=== PATIENT | male | born 1955 | race Caucasian/White ===

== ENCOUNTER 2021-09-28 11:15 | Inpatient (IN) | payer MEDICARE ==
[2021-09-28 12:49] LABS: Hemoglobin 15.3 g/dL (13.5-17.5); Mean Corpuscular HGB CONC 33.8 g/dL (32.0-36.0); Mean Corpuscular Hemoglobin 31.2 pg (27.0-33.0); Mean Corpuscular Volume 92.3 fl (81.2-95.1); Mean Platelet Volume 10.2 fl (7.4-10.4); Platelet Count 172 10x3/uL (150-450); RBC Distribution Width 13.1 % (11.5-14.5); Red Blood Cell (RBC) Count 4.91 10x6/uL (4.32-5.72); White Blood Cell (WBC) Count 5.7 10x3/uL (3.5-10.5)
[2021-09-28 13:10] LABS: Anion Gap 14 mmol/L (10-20); BUN (Urea Nitrogen) 15 mg/dL (8.4-25.7); Calc. Creatinine Clearance 0 mL/min (70-130); Calcium 9.1 mg/dL (7.8-10.44); Carbon Dioxide 29 mmol/L (23-31); Chloride 104 mmol/L (98-107); Glucose 92 mg/dL (80-115); Potassium 4.9 mmol/L (3.5-5.1); Sodium 142 mmol/L (136-145)
[2021-10-03] MEDS ORDERED: Albumin 5% 500 ML ONE (06:20)
[2021-10-03] MEDS ORDERED: Lidocaine 1% MPF 2 ML VIAL ONE ×2 (06:21→06:30)
[2021-10-03] MEDS ORDERED: Heparin 10,000 UNITS/1 ML VIAL 30,000 UNITS in Sodium Chloride 0.9% 1,000 ML FS SCH (06:45)
[2021-10-03] MEDS ORDERED: Fentanyl 100 MCG/2 ML VIAL ONE ×6 (06:50→06:53)
[2021-10-03] MEDS ORDERED: CEFAZOLIN 2 GM VIAL ONE (07:21)
[2021-10-03] MEDS ORDERED: Sodium Chloride 0.9% 100 ML ONE (07:21)
[2021-10-03] MEDS ORDERED: Mannitol 12.5 GM/50 ML ONE (07:40)
[2021-10-03] MEDS ORDERED: Protamine Sulfate 250 MG/25 ML VIAL ONE (07:40)
[2021-10-03] MEDS ORDERED: Norepinephrine 4 MG/4 ML VIAL ONE (07:40)
[2021-10-03] MEDS ORDERED: Sodium Bicarb 50 MEQ/50 ML Abboject 8.4% SYRINGE ONE (07:40)
[2021-10-03] MEDS ORDERED: Thrombin 5000 UNITS/5 ML VIAL ONE (07:40)
[2021-10-03] MEDS ORDERED: PROPOFOL 200 MG/20 ML VIAL ONE (07:40)
[2021-10-03] MEDS ORDERED: Heparin 5,000 UNITS/ML VIAL ONE (07:40)
[2021-10-03] MEDS ORDERED: Papaverine 60 MG/2 ML VIAL ONE (07:40)
[2021-10-03] MEDS ORDERED: Rocuronium Bromide 10 MG/ML (10ML VIAL) ONE (07:40)
[2021-10-03] MEDS ORDERED: Cardioplegic Soln 1,000 ML BAG ONE (07:40)
[2021-10-03] MEDS ORDERED: Aminocaproic Acid 5 GM/20 ML VIAL ONE (07:40)
[2021-10-03] MEDS ORDERED: Calcium Chloride 1 GM/10 ML Abboject SYRINGE ONE (07:40)
[2021-10-03] MEDS ORDERED: Heparin 30,000 units/30 ml VIAL ONE (07:40)
[2021-10-03] MEDS ORDERED: Lidocaine 2% PF 100 mg/5 ml Syringe ONE (07:40)
[2021-10-03] MEDS ORDERED: Lidocaine 1% PF 5 ML VIAL ONE (07:40)
[2021-10-03] MEDS ORDERED: Magnesium Sulfate 1 GM/2 ML VIAL ONE (07:40)
[2021-10-03] MEDS ORDERED: PHENYLEPHRINE-NS 100 MCG/ML 10 ML SYRINGE ONE ×2 (08:30→09:35)
[2021-10-03] MEDS ORDERED: Protamine Sulfate 50 MG/5 ML VIAL ONE (09:39)
[2021-10-03] MEDS ORDERED: Norepinephrine 8 MG/0.9% NS 250 ML IVPB PRN (10:43)
[2021-10-03] MEDS ORDERED: niCARdipine 25 MG in Sodium Chloride 0.9% 250 ML 250 ML IVPB PRN (10:43)
[2021-10-03] MEDS ORDERED: Potassium Chloride 20 MEQ/100 ML PREMIX BAG IVPB PRN (10:43)
[2021-10-03] MEDS ORDERED: hydrALAZINE 20 MG/ML VIAL SLOW IVP PRN (10:43)
[2021-10-03] MEDS ORDERED: Fentanyl 100 MCG/2 ML VIAL SLOW IVP PRN (10:43)
[2021-10-03] MEDS ORDERED: Mag-Al 1200 mg/1200 mg/30 ML UDCUP PO PRN (10:43)
[2021-10-03] MEDS ORDERED: Nitroglycerin 50 MG/250 ML BOT 250 ML IVPB PRN (10:43)
[2021-10-03] MEDS ORDERED: DOPamine 400 MG/D5W 250 ML 250 ML IVPB PRN (10:43)
[2021-10-03] MEDS ORDERED: Hetastarch 6% 500 ML 500 ML IVPB PRN (10:43)
[2021-10-03] MEDS ORDERED: Post-Op Insulin Drip Protocol IVPB ONE (10:43)
[2021-10-03] MEDS ORDERED: Bisacodyl 10 MG SUPP PR PRN (10:43)
[2021-10-03] MEDS ORDERED: Bisacodyl 5 MG TAB PO PRN (10:43)
[2021-10-03] MEDS ORDERED: Guaifenesin DM 100-10/5 ML UDCUP PO PRN (10:43)
[2021-10-03] MEDS ORDERED: Dextrose 50% Abboject 50 ML SYRINGE SLOW IVP PRN (11:00)
[2021-10-03] MEDS ORDERED: Dextrose 5% in Water 1,000 ML IV PRN (11:00)
[2021-10-03] MEDS ORDERED: HUMULIN R 100 UNITS in Sodium Chloride 0.9% 100 ML IVPB SCH (11:00)
[2021-10-03 11:07] LABS: #Basophils 0.1 thou/uL (0.0-0.2); #Eosinphils 0.2 thou/uL (0.0-0.7); #Monocytes 0.9 thou/uL (0.11-0.59); #Neutrophils 10.7 thou/uL (1.40-6.50); %Basophils 0.8 % (0.0-1.0); %Eosinophils 1.2 % (0.0-10.0); %Lymphocytes 14.3 % (21.0-51.0); %Monocytes 6.7 % (0.0-10.0); %Neutrophils 76.9 % (42.0-75.0); Hemoglobin 12.9 g/dL (14.0-18.0); Mean Corpuscular HGB CONC 32.6 g/dL (32.0-36.0); Mean Corpuscular Volume 98.2 fL (78.0-98.0); Mean Platelet Volume 7.4 fL (7.4-10.4); Platelet Count 136 thou/uL (130-400); RBC Distribution Width 11.9 % (11.5-14.5); Red Blood Cell (RBC) Count 4.03 mill/uL (4.70-6.10); White Blood Cell (WBC) Count 13.9 thou/uL (4.8-10.8)
[2021-10-03] MEDS: Morphine 2 MG/ML VIAL SLOW IVP PRN ×2 (11:13→11:42)
[2021-10-03] MEDS: Lactated Ringer's 1,000 ML IV SCH (11:14)
[2021-10-03 11:20] LABS: INR-International Normal Ratio 1.4
[2021-10-03 11:21] LABS: PTT 39.9 sec (22.9-36.1)
[2021-10-03 11:23] LABS: Actual Bicarbonate (HCO3a) 22.3 mEq/L (22-28); Base Excess (BEa) -4.5 mEq/L (-2.0 to +3.0); CO2 Tension 47.6 mmHg (35.0-45.0); Calcium, Ionized (arterial) 1.21 mmol/L (1.12-1.30); Carboxyhemoglobin (COHb) 0.6 gm% (0.0-3.0); Hemoglobin (Hb) 14.3 g/dL (14.0-18.0); O2 Tension (PaO2), arterial 110.3 mmHg (> 80.0); pH, Arterial 7.29 (7.35-7.45)
[2021-10-03 11:26] LABS: Puncture Site Arterial Line
[2021-10-03 11:27] LABS: Anion Gap 12 mmol/L (10-20); BUN (Urea Nitrogen) 12 mg/dL (8.4-25.7); Calc. Creatinine Clearance 123 mL/min (70-130); Calcium 8.5 mg/dL (7.8-10.44); Carbon Dioxide 23 mmol/L (23-31); Chloride 111 mmol/L (98-107); Glucose 121 mg/dL (80-115); Potassium 4.1 mmol/L (3.5-5.1); Sodium 142 mmol/L (136-145)
[2021-10-03] MEDS: Insulin Regular 300 UNITS/3 ML VIAL SC PRN ×3 (12:28→23:53)
[2021-10-03] MEDS: Ketorolac Tromethamine 30 MG/ML VIAL IVP SCH ×3 (12:29→23:32)
[2021-10-03] MEDS: Fentanyl 100 MCG/2 ML VIAL SLOW IVP PRN ×4 (13:42→22:14)
[2021-10-03 14:10] LABS: Actual Bicarbonate (HCO3a) 21.8 mEq/L (22-28); Base Excess (BEa) -4.8 mEq/L (-2.0 to +3.0); CO2 Tension 45.8 mmHg (35.0-45.0); Calcium, Ionized (arterial) 1.15 mmol/L (1.12-1.30); Carboxyhemoglobin (COHb) 0.3 gm% (0.0-3.0); Hemoglobin (Hb) 14.3 g/dL (14.0-18.0); O2 Tension (PaO2), arterial 109.9 mmHg (> 80.0); Potassium - ABG Lab 3.92 mmol/L (3.70-5.30)
[2021-10-03 14:30] LABS: Puncture Site Arterial Line
[2021-10-03] MEDS: Ondansetron PF 4 MG/2 ML Vial IVP PRN (14:48)
[2021-10-03 15:59] LABS: Actual Bicarbonate (HCO3a) 22.9 mEq/L (22-28); Calcium, Ionized (arterial) 1.18 mmol/L (1.12-1.30); Carboxyhemoglobin (COHb) 0.4 gm% (0.0-3.0); Hemoglobin (Hb) 14.5 g/dL (14.0-18.0); O2 Tension (PaO2), arterial 112.9 mmHg (> 80.0); Potassium - ABG Lab 3.64 mmol/L (3.70-5.30); pH, Arterial 7.34 (7.35-7.45)
[2021-10-03] MEDS: CEFAZOLIN 2 GM in Sodium Chloride 0.9% 100 ML IVPB SCH ×2 (15:59→23:32)
[2021-10-03 16:01] LABS: Puncture Site Arterial Line
[2021-10-03 16:25] LABS: Hemoglobin 14.3 g/dL (14.0-18.0)
[2021-10-03 16:49] LABS: Potassium 3.9 mmol/L (3.5-5.1)
[2021-10-03] MEDS ORDERED: Promethazine HCl 6.25 MG in Sodium Chloride 0.9% 50 ML IVPB SCH (18:30)
[2021-10-03] MEDS: Atorvastatin Calcium 20 MG TAB PO SCH (20:12)
[2021-10-03] MEDS ORDERED: Famotidine/PF 20 mg/2ml Vial SLOW IVP SCH (21:00)
[2021-10-03] MEDS: traMADol HCl 50 MG TAB PO PRN (21:15)
[2021-10-04] MEDS: Lactated Ringer's 1,000 ML IV SCH (01:06)
[2021-10-04] MEDS: Fentanyl 100 MCG/2 ML VIAL SLOW IVP PRN (02:01)
[2021-10-04] MEDS: traMADol HCl 50 MG TAB PO PRN ×3 (03:11→12:23)
[2021-10-04] MEDS: Insulin Regular 300 UNITS/3 ML VIAL SC PRN (03:51)
[2021-10-04 03:58] LABS: #Lymphocytes 0.7 thou/uL (1.20-3.40); #Monocytes 1.1 thou/uL (0.11-0.59); #Neutrophils 10.1 thou/uL (1.40-6.50); %Basophils 0.3 % (0.0-1.0); %Eosinophils 0.1 % (0.0-10.0); %Lymphocytes 5.6 % (21.0-51.0); %Monocytes 9.1 % (0.0-10.0); %Neutrophils 84.9 % (42.0-75.0); Mean Corpuscular HGB CONC 33.5 g/dL (32.0-36.0); Mean Corpuscular Hemoglobin 32.9 pg (27.0-31.0); Mean Corpuscular Volume 98.2 fL (78.0-98.0); Mean Platelet Volume 7.1 fL (7.4-10.4); Platelet Count 139 thou/uL (130-400); RBC Distribution Width 11.9 % (11.5-14.5); Red Blood Cell (RBC) Count 3.96 mill/uL (4.70-6.10); White Blood Cell (WBC) Count 11.9 thou/uL (4.8-10.8)
[2021-10-04 04:16] LABS: Anion Gap 9 mmol/L (10-20); BUN (Urea Nitrogen) 11 mg/dL (8.4-25.7); Calc. Creatinine Clearance 128 mL/min (70-130); Calcium 8.2 mg/dL (7.8-10.44); Carbon Dioxide 26 mmol/L (23-31); Chloride 107 mmol/L (98-107); Glucose 123 mg/dL (80-115); Potassium 4.1 mmol/L (3.5-5.1); Sodium 138 mmol/L (136-145)
[2021-10-04 04:49] VITALS: BMI 26.3
[2021-10-04] MEDS: Ketorolac Tromethamine 30 MG/ML VIAL IVP SCH ×4 (05:13→23:33)
[2021-10-04] MEDS: Levothyroxine Sodium 100 MCG TAB PO SCH (05:14)
[2021-10-04] MEDS ORDERED: Zolpidem Tartrate 5 MG TAB PO PRN (07:42)
[2021-10-04] MEDS ORDERED: Mineral Oil ENEMA PR PRN (07:42)
[2021-10-04] MEDS ORDERED: Nitroglycerin 0.4 MG TAB (25 Tab Bottle) SL PRN (07:42)
[2021-10-04] MEDS ORDERED: diphenhydrAMINE 25 MG CAP PO PRN (07:42)
[2021-10-04] MEDS ORDERED: Promethazine HCl 25 MG/ML VIAL IVPB PRN (07:42)
[2021-10-04] MEDS: Metoprolol Tartrate 25 MG TAB PO SCH ×2 (08:13→20:38)
[2021-10-04] MEDS: Aspirin 325 MG TAB PO SCH (08:13)
[2021-10-04] MEDS: Famotidine 20 MG TAB PO SCH ×2 (08:13→20:38)
[2021-10-04] MEDS: CEFAZOLIN 2 GM in Sodium Chloride 0.9% 100 ML IVPB SCH (08:14)
[2021-10-04] MEDS: Enoxaparin Sodium 40 MG/0.4 ML SYRINGE SC SCH (08:14)
[2021-10-04] MEDS: Ondansetron PF 4 MG/2 ML Vial IVP PRN ×3 (08:21→20:37)
[2021-10-04] MEDS: Polyethylene Glycol 3350 17 GM Packet PO SCH (10:59)
[2021-10-04] MEDS: Acetaminophen 325 MG TAB PO PRN (11:00)
[2021-10-04] MEDS ORDERED: Digoxin 0.5 MG/2 ML AMP SLOW IVP SCH (11:00)
[2021-10-04] MEDS: Promethazine HCl 6.25 MG in Sodium Chloride 0.9% 50 ML IVPB PRN (17:40)
[2021-10-04] MEDS: Atorvastatin Calcium 20 MG TAB PO SCH (20:38)
[2021-10-05] MEDS: Levothyroxine Sodium 100 MCG TAB PO SCH (04:59)
[2021-10-05] MEDS: Ondansetron PF 4 MG/2 ML Vial IVP PRN ×3 (04:59→19:39)
[2021-10-05] MEDS: Ketorolac Tromethamine 30 MG/ML VIAL IVP SCH ×3 (04:59→18:53)
[2021-10-05] MEDS ORDERED: Potassium Chloride 10 MEQ TAB PO SCH (08:00)
[2021-10-05] MEDS ORDERED: Furosemide 40 MG TAB PO SCH (09:00)
[2021-10-05] MEDS: Aspirin 325 MG TAB PO SCH (09:25)
[2021-10-05] MEDS: Metoprolol Tartrate 25 MG TAB PO SCH (09:25)
[2021-10-05] MEDS: Famotidine 20 MG TAB PO SCH ×2 (09:26→19:31)
[2021-10-05] MEDS: Polyethylene Glycol 3350 17 GM Packet PO SCH (09:26)
[2021-10-05] MEDS: Enoxaparin Sodium 40 MG/0.4 ML SYRINGE SC SCH (09:34)
[2021-10-05 11:44] LABS: Actual Bicarbonate (HCO3a) 22.9 mEq/L (22-28); Analyzer IN Cardio OR; Base Excess (BEa) -1.8 mEq/L (-2.0 to +3.0); CO2 Tension 38.8 mmHg (35.0-45.0); Calcium, Ionized (arterial) 1.13 mmol/L (1.12-1.30); Carboxyhemoglobin (COHb) 0.4 gm% (0.0-3.0); Hemoglobin (Hb) 14.5 g/dL (14.0-18.0); O2 Tension (PaO2), arterial 283.7 mmHg (> 80.0); Potassium - ABG Lab 3.91 mmol/L (3.70-5.30); pH, Arterial 7.39 (7.35-7.45)
[2021-10-05 11:44] LABS: Actual Bicarbonate (HCO3a) 24.7 mEq/L (22-28); Analyzer IN Cardio OR; Base Excess (BEa) -0.4 mEq/L (-2.0 to +3.0); CO2 Tension 42.4 mmHg (35.0-45.0); Calcium, Ionized (arterial) 1.03 mmol/L (1.12-1.30); Hemoglobin (Hb) 11.1 g/dL (14.0-18.0); O2 Tension (PaO2), arterial 446.6 mmHg (> 80.0); Potassium - ABG Lab 4.39 mmol/L (3.70-5.30); pH, Arterial 7.38 (7.35-7.45)
[2021-10-05 11:44] LABS: Analyzer IN Cardio OR; Base Excess (BEa) -2.3 mEq/L (-2.0 to +3.0); CO2 Tension 36.7 mmHg (35.0-45.0); Calcium, Ionized (arterial) 1.13 mmol/L (1.12-1.30); Carboxyhemoglobin (COHb) 0.5 gm% (0.0-3.0); Hemoglobin (Hb) 14.6 g/dL (14.0-18.0); O2 Tension (PaO2), arterial 298.5 mmHg (> 80.0); Potassium - ABG Lab 3.99 mmol/L (3.70-5.30)
[2021-10-05 11:45] LABS: Analyzer IN Cardio OR; Base Excess (BEa) -1.3 mEq/L (-2.0 to +3.0); CO2 Tension 48.8 mmHg (35.0-45.0); Calcium, Ionized (arterial) 1.06 mmol/L (1.12-1.30); Carboxyhemoglobin (COHb) 0.4 gm% (0.0-3.0); Hemoglobin (Hb) 11.4 g/dL (14.0-18.0); Potassium - ABG Lab 4.35 mmol/L (3.70-5.30); pH, Arterial 7.33 (7.35-7.45)
[2021-10-05 11:45] LABS: Puncture Site Arterial Line
[2021-10-05 11:45] LABS: Actual Bicarbonate (HCO3a) 22.1 mEq/L (22-28); Analyzer IN Cardio OR; Base Excess (BEa) -4.2 mEq/L (-2.0 to +3.0); Calcium, Ionized (arterial) 1.23 mmol/L (1.12-1.30); Carboxyhemoglobin (COHb) 0.3 gm% (0.0-3.0); Hemoglobin (Hb) 12.6 g/dL (14.0-18.0); O2 Tension (PaO2), arterial 117.3 mmHg (> 80.0); Potassium - ABG Lab 3.96 mmol/L (3.70-5.30); pH, Arterial 7.31 (7.35-7.45)
[2021-10-05 11:57] LABS: Puncture Site Arterial Line
[2021-10-05 11:58] LABS: Puncture Site Arterial Line
[2021-10-05 11:59] LABS: O2 Tension (PaO2), arterial 56.9 mmHg (> 80.0); Puncture Site Arterial Line
[2021-10-05 12:00] LABS: Puncture Site Arterial Line
[2021-10-05] MEDS: Promethazine HCl 6.25 MG in Sodium Chloride 0.9% 50 ML IVPB PRN (16:42)
[2021-10-05] MEDS ORDERED: Amitriptyline HCl 25 MG TAB PO SCH (19:15)
[2021-10-05] MEDS ORDERED: Perphenazine 2 MG TAB PO SCH (19:15)
[2021-10-05] MEDS: Atorvastatin Calcium 20 MG TAB PO SCH (19:31)
[2021-10-05] MEDS: Acetaminophen 325 MG TAB PO PRN (19:37)
[2021-10-05] MEDS ORDERED: Metoprolol Tartrate 25 MG TAB PO SCH (21:00)
[2021-10-06] MEDS: Ketorolac Tromethamine 30 MG/ML VIAL IVP SCH ×2 (02:32→05:50)
[2021-10-06] MEDS: Levothyroxine Sodium 100 MCG TAB PO SCH (05:50)
[2021-10-06] MEDS: Ondansetron PF 4 MG/2 ML Vial IVP PRN ×3 (05:50→19:03)
[2021-10-06] MEDS: Aspirin 325 MG TAB PO SCH (08:57)
[2021-10-06] MEDS: Famotidine 20 MG TAB PO SCH ×2 (08:58→21:16)
[2021-10-06] MEDS: Metoprolol Tartrate 25 MG TAB PO SCH ×2 (08:58→21:16)
[2021-10-06] MEDS: Enoxaparin Sodium 40 MG/0.4 ML SYRINGE SC SCH (08:58)
[2021-10-06] MEDS: Polyethylene Glycol 3350 17 GM Packet PO SCH (08:59)
[2021-10-06] MEDS: Acetaminophen 325 MG TAB PO PRN ×3 (09:02→21:17)
[2021-10-06] MEDS: Promethazine HCl 6.25 MG in Sodium Chloride 0.9% 50 ML IVPB PRN ×3 (10:15→21:27)
[2021-10-06] MEDS: Atorvastatin Calcium 20 MG TAB PO SCH (21:16)
[2021-10-07] MEDS: Acetaminophen 325 MG TAB PO PRN ×3 (05:39→20:57)
[2021-10-07] MEDS: Levothyroxine Sodium 100 MCG TAB PO SCH (05:39)
[2021-10-07] MEDS: Promethazine HCl 6.25 MG in Sodium Chloride 0.9% 50 ML IVPB PRN (05:39)
[2021-10-07] MEDS: Enoxaparin Sodium 40 MG/0.4 ML SYRINGE SC SCH (09:10)
[2021-10-07] MEDS: Polyethylene Glycol 3350 17 GM Packet PO SCH (09:10)
[2021-10-07] MEDS: Famotidine 20 MG TAB PO SCH ×2 (09:11→20:55)
[2021-10-07] MEDS: Aspirin 325 MG TAB PO SCH (09:11)
[2021-10-07] MEDS: Metoprolol Tartrate 50 MG TAB PO SCH ×2 (09:11→20:55)
[2021-10-07] MEDS ORDERED: Amiodarone 450 MG in Dextrose 5% in Water 250 ML IVPB SCH (11:15)
[2021-10-07] MEDS ORDERED: Amiodarone 150 MG in Dextrose 5% in Water 100 ML IVPB SCH (11:30)
[2021-10-07] MEDS: Ondansetron PF 4 MG/2 ML Vial IVP PRN ×2 (16:57→20:55)
[2021-10-08] MEDS: Acetaminophen 325 MG TAB PO PRN ×3 (05:44→21:32)
[2021-10-08] MEDS: Levothyroxine Sodium 100 MCG TAB PO SCH (05:44)
[2021-10-08] MEDS: Promethazine HCl 6.25 MG in Sodium Chloride 0.9% 50 ML IVPB PRN (05:44)
[2021-10-08] MEDS: Famotidine 20 MG TAB PO SCH ×2 (08:34→21:32)
[2021-10-08] MEDS: Enoxaparin Sodium 40 MG/0.4 ML SYRINGE SC SCH (08:34)
[2021-10-08] MEDS: Metoprolol Tartrate 50 MG TAB PO SCH ×2 (08:34→21:31)
[2021-10-08] MEDS: Polyethylene Glycol 3350 17 GM Packet PO SCH (08:34)
[2021-10-08] MEDS: Aspirin 325 MG TAB PO SCH (08:34)
[2021-10-08] MEDS ORDERED: Perphenazine 2 MG TAB PO SCH (09:00)
[2021-10-08] MEDS ORDERED: Amitriptyline HCl 25 MG TAB PO SCH (09:00)
[2021-10-08] MEDS ORDERED: Lisinopril 5 MG TAB PO SCH (10:15)
[2021-10-08] MEDS ORDERED: Diltiazem HCl SR 60 mg Capsule PO SCH (12:30)
[2021-10-08] MEDS: Ondansetron PF 4 MG/2 ML Vial IVP PRN ×2 (16:28→21:31)
[2021-10-08] MEDS: Diltiazem HCl SR 60 mg Capsule PO SCH (21:31)
[2021-10-08] MEDS: Lisinopril 5 MG TAB PO SCH (21:31)
[2021-10-09] MEDS: Levothyroxine Sodium 100 MCG TAB PO SCH (05:41)
[2021-10-09] MEDS: Acetaminophen 325 MG TAB PO PRN ×2 (05:42→17:50)
[2021-10-09] MEDS: Ondansetron PF 4 MG/2 ML Vial IVP PRN ×2 (05:42→17:50)
[2021-10-09] MEDS: Diltiazem HCl SR 60 mg Capsule PO SCH ×2 (09:20→21:31)
[2021-10-09] MEDS: Metoprolol Tartrate 50 MG TAB PO SCH ×2 (09:20→21:31)
[2021-10-09] MEDS: Famotidine 20 MG TAB PO SCH ×2 (09:20→21:30)
[2021-10-09] MEDS: Lisinopril 5 MG TAB PO SCH ×2 (09:21→21:30)
[2021-10-09] MEDS: Polyethylene Glycol 3350 17 GM Packet PO SCH (09:21)
[2021-10-09] MEDS: Aspirin 325 MG TAB PO SCH (09:22)
[2021-10-09] MEDS: Enoxaparin Sodium 40 MG/0.4 ML SYRINGE SC SCH (09:33)
[2021-10-09] MEDS ORDERED: Atorvastatin Calcium 40 MG TAB PO SCH (21:00)
[2021-10-10] MEDS: Levothyroxine Sodium 100 MCG TAB PO SCH (05:23)
[2021-10-10] MEDS: Ondansetron PF 4 MG/2 ML Vial IVP PRN (07:45)
[2021-10-10] MEDS: Acetaminophen 325 MG TAB PO PRN (07:45)
[2021-10-10] MEDS ORDERED: Dronedarone HCl 400 MG TAB PO SCH ×2 (09:30→17:00)
[2021-10-10] MEDS: Enoxaparin Sodium 40 MG/0.4 ML SYRINGE SC SCH (10:27)
[2021-10-10] MEDS: Diltiazem HCl SR 60 mg Capsule PO SCH (10:27)
[2021-10-10] MEDS: Famotidine 20 MG TAB PO SCH (10:28)
[2021-10-10] MEDS: Lisinopril 5 MG TAB PO SCH (10:28)
[2021-10-10] MEDS: Metoprolol Tartrate 50 MG TAB PO SCH (10:28)
[2021-10-10] MEDS: Aspirin 325 MG TAB PO SCH (10:28)
[2021-10-10] MEDS: Polyethylene Glycol 3350 17 GM Packet PO SCH (10:28)
[2021-10-10 15:15] VITALS: TEMP 98.1
[2021-10-10 15:38] VITALS: BP 122/67
== END 2021-10-10 18:45 | disposition home or self-care (01) | DRG 236 ==
LOC: SURG A 10-03 05:26 → CCU 10-03 10:36 → 2NO 10-04 08:59
PROVIDERS: ADMIT Thoracic Surgery (Cardiothoracic Vascular Surgery); ATTEND Thoracic Surgery (Cardiothoracic Vascular Surgery)
PROC: 021009F Bypass Coronary Artery, One Artery from Abdominal Artery with Autologous Venous Tissue, Open Approach (ICD-10-PCS; principal; 2021-10-03)
PROC: 02100Z9 Bypass Coronary Artery, One Artery from Left Internal Mammary, Open Approach (ICD-10-PCS; 2021-10-03)
PROC: 06BQ0ZZ Excision of Left Saphenous Vein, Open Approach (ICD-10-PCS; 2021-10-03)
PROC: 5A1221Z Performance of Cardiac Output, Continuous (ICD-10-PCS; 2021-10-03)
PROC: 02L70CK Occlusion of Left Atrial Appendage with Extraluminal Device, Open Approach (ICD-10-PCS; 2021-10-03)
DX: I25.10 Atherosclerotic heart disease of native coronary artery without angina pectoris (principal); I48.92 Unspecified atrial flutter; Z20.822 Contact with and (suspected) exposure to COVID-19; I49.1 Atrial premature depolarization; I48.91 Unspecified atrial fibrillation; I10 Essential (primary) hypertension; E78.5 Hyperlipidemia, unspecified; I95.9 Hypotension, unspecified; E89.0 Postprocedural hypothyroidism; N40.0 Benign prostatic hyperplasia without lower urinary tract symptoms; Z95.5 Presence of coronary angioplasty implant and graft; Z90.49 Acquired absence of other specified parts of digestive tract; Z82.49 Family history of ischemic heart disease and other diseases of the circulatory system; Z88.6 Allergy status to analgesic agent; Z79.82 Long term (current) use of aspirin; Z79.899 Other long term (current) drug therapy; Z79.890 Hormone replacement therapy
CPT/HCPCS: 36416; 36430; 71045; 80048; 82805; 82947; 85025; 85027; 85610; 85730; 86850; 86900; 86901; 93005; 93010; 93306; 93798; 94002; 94150; 97139; C1751; C1776; J0360; J0690; J1160; J1642; J1644; J1650; J1815; J1885; J2001; J2150; J2270; J2405; J2440; J2550; J2704; J2720; J3010; J3370; J3475; J3480; J3490; J7120; P9045; Q0175; S0017; S0028; U0003; U0005